=== PATIENT | male | born 1975 | race Two or more races ===

== ENCOUNTER 2020-08-21 15:46 | Emergency (ER) | payer MEDICAID ==
[~2020-08-21] VITALS: Ht 180.3 cm; Wt 86.2 kg
[2020-08-21 15:54] VITALS: BP 115/68
[2020-08-21] MEDS ORDERED: traMADol HCL 50 MG TAB PO ONE (17:15)
== END 2020-08-21 17:27 ==
LOC: ER 15:46
DX: S66.912A Strain of unspecified muscle, fascia and tendon at wrist and hand level, left hand, initial encounter (principal); S66.911A Strain of unspecified muscle, fascia and tendon at wrist and hand level, right hand, initial encounter; F17.210 Nicotine dependence, cigarettes, uncomplicated; X58.XXXA Exposure to other specified factors, initial encounter; Y93.89 Activity, other specified; Y92.89 Other specified places as the place of occurrence of the external cause; Y99.8 Other external cause status
CPT/HCPCS: 73100; 73120; 99284; J7030

== ENCOUNTER 2022-12-06 00:14 | Emergency (ER) | payer MEDICAID ==
[~2022-12-06] VITALS: Ht 180.3 cm; Wt 80.0 kg
[2022-12-06 00:34] VITALS: BP 134/83
== END 2022-12-06 00:50 | disposition left against medical advice (07) ==
LOC: ER 00:14 → EDBD 00:14 → ER 00:36
DX: R41.0 Disorientation, unspecified (principal); Z53.21 Procedure and treatment not carried out due to patient leaving prior to being seen by health care provider

== ENCOUNTER 2023-06-27 21:32 | Emergency (ER) | payer MEDICAID ==
[~2023-06-27] VITALS: Ht 180.3 cm; Wt 90.9 kg
[2023-06-27] MEDS ORDERED: HYDROcodone-ACET 5/325MG TAB PO ONE (23:15)
[2023-06-27] MEDS ORDERED: IBUP1TAB5 PO (23:24)
[2023-06-27] MEDS ORDERED: CLIN300C70 PO (23:24)
[2023-06-27] MEDS ORDERED: BACDST PO (23:24)
[2023-06-27] MEDS ORDERED: MUPI2OIN2 EX (23:24)
[2023-06-27] MEDS ORDERED: NEOMYCIN-BACITRACIN-POLYM UNITDOSE PKG TOP OINT TOP ONE (23:30)
[2023-06-27] MEDS ORDERED: CLINDAMYCIN HCL 150 MG CAP PO ONE (23:30)
[2023-06-27] MEDS ORDERED: TETANUS-DIPTH-ACEL PERTUSSIS 0.5ML SYR Tdap IM ONE (23:30)
[2023-06-28 00:20] VITALS: BP 102/62; PULSE 69; RESP 15; TEMP 98.1; O2SAT 100
== END 2023-06-28 00:42 | disposition home or self-care (01) ==
LOC: ER 21:32
DX: T14.8XXA Other injury of unspecified body region, initial encounter (principal); S93.509A Unspecified sprain of unspecified toe(s), initial encounter; L03.116 Cellulitis of left lower limb; F17.210 Nicotine dependence, cigarettes, uncomplicated; F12.90 Cannabis use, unspecified, uncomplicated; W20.8XXA Other cause of strike by thrown, projected or falling object, initial encounter; Y93.89 Activity, other specified; Y92.89 Other specified places as the place of occurrence of the external cause; Y99.8 Other external cause status
CPT/HCPCS: 73630; 90471; 90715; 99283; L3260